=== PATIENT | male | born 1985 | race Caucasian/White ===

== ENCOUNTER 2017-06-22 10:30 | Emergency (ER) | payer BC, OTHER ==
[~2017-06-22] VITALS: Ht 175.3 cm; Wt 98.0 kg
[2017-06-22 10:32] VITALS: BP 140/90; PULSE 81; RESP 12; TEMP 98.1; O2SAT 99
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
[2017-06-22] MEDS ORDERED: IBUPROFEN 600 MG TAB PO ONE (12:00)
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
[2017-06-22] MEDS ORDERED: IBUP-232 PO (13:47)
== END 2017-06-22 14:25 | disposition home or self-care (01) ==
LOC: NEPD 10:30
DX: S16.1XXA Strain of muscle, fascia and tendon at neck level, initial encounter (principal); M54.5 Low back pain; V43.52XA Car driver injured in collision with other type car in traffic accident, initial encounter
CPT/HCPCS: 72100; 72125; 99284